=== PATIENT | male | born 1985 | race Caucasian/White ===

== ENCOUNTER 2018-05-15 16:49 | Emergency (ER) | payer BC, OTHER ==
[~2018-05-15] VITALS: Ht 182.9 cm; Wt 88.5 kg
[2018-05-15 16:55] VITALS: BP 130/86
[2018-05-15] MEDS ORDERED: cefTRIAXone SOD 1,000 MG VL IM ONE (19:15)
== END 2018-05-15 19:46 | disposition home or self-care (01) ==
LOC: ER 16:57
DX: H66.93 Otitis media, unspecified, bilateral (principal)
CPT/HCPCS: 70450; 96372; 99284; J0696